=== PATIENT | female | born 1950 | race Caucasian/White ===

== ENCOUNTER 2016-11-15 05:32 | Observation (INO) | payer OTHER ==
[~2016-11-15] VITALS: Ht 160 cm; Wt 61.8 kg
[~2016-11-15 05:32] MED LIST: ASPI-110 PO; LISI-519 PO; ROSU10 PO
[2016-11-15] MEDS ORDERED: METOPROLOL TARTRATE 25 MG TAB PO PRN (06:00)
[2016-11-15] MEDS ORDERED: CHLORHEXIDINE GLUCONATE 2 % 1 PACK (2 CLOTHS) TOPICAL PRN (06:00)
[2016-11-15] MEDS ORDERED: LACTATED RINGER'S 1000 ML IV PRN (06:00)
[2016-11-15] MEDS ORDERED: SODIUM CHLORID 0.9% 500 ML IV PRN (06:00)
[2016-11-15] MEDS ORDERED: INSULIN HUMAN REGULAR 1,000 UNITS/10 ML VIAL SQ PRN (06:00)
[2016-11-15] MEDS ORDERED: HEPARIN SODIUM - SQ 10,000 UNITS/ML VIAL SQ SCH (06:00)
[2016-11-15] MEDS ORDERED: POVIDONE IODINE 5% (ANTISEPSIS KIT) 4 APPLICATIONS EACH NARE PRN (06:00)
[2016-11-15] MEDS ORDERED: ceFAZolin 1,000 MG/NS 100 ML IV SCH ×2 (06:00)
[2016-11-15 06:11] VITALS: BP 144/57; PULSE 72; RESP 20; TEMP 98; O2SAT 98
[2016-11-15] MEDS ORDERED: ACETAMINOPHEN 1000 MG/100 ML VIAL IV ONE (07:08)
[2016-11-15] MEDS ORDERED: HYDROmorphone HCL PF 2 MG/ML VIAL ONE (07:08)
[2016-11-15] MEDS ORDERED: SUGAMMADEX SODIUM 200 MG/2 ML VIAL IV PUSH ONE ×2 (07:09)
[2016-11-15] MEDS ORDERED: FAMOTIDINE 20 MG/2 ML VIAL ONE (07:09)
[2016-11-15] MEDS ORDERED: LIDOCAINE 1%/EPINEPHrine 1:100,000 SOLN 30 ML VIAL INFIL ONE (08:11)
[2016-11-15] MEDS ORDERED: fentaNYL CITRATE 250 MCG/5 ML AMP ONE (08:28)
[2016-11-15] MEDS ORDERED: MIDAZOLAM HCL 2 MG/2 ML VIAL ONE (08:28)
[2016-11-15] MEDS ORDERED: oxyCODONE/ACETAMINOPHEN 5 MG/325 MG TAB PO PRN ×2 (11:00)
[2016-11-15] MEDS ORDERED: LORazepam 0.5 MG TAB PO PRN (11:00)
[2016-11-15] MEDS ORDERED: diphenhydrAMINE HCL 25 MG CAP PO PRN (11:00)
[2016-11-15] MEDS ORDERED: SODIUM CHLORIDE 0.9% FLUSH 10 ML FLUSH IV FLUSH PRN (11:00)
[2016-11-15] MEDS ORDERED: ONDANSETRON HCL 4 MG/2 ML VIAL IVP PRN (11:00)
[2016-11-15] MEDS ORDERED: DO NOT ADM ANY ANTICOAGULANT DRUGS PRN (11:06)
[2016-11-15] MEDS: D5-1/2 NS + KCL 20 MEQ INJ 1,000 ML IV SCH ×2 (11:37→22:08)
[2016-11-15] MEDS: KETOROLAC TROMETHAMINE 30 MG/ML (IVP) VIAL IVP SCH ×3 (11:40→23:55)
[2016-11-15] MEDS ORDERED: ONDANSETRON HCL 4 MG/2 ML VIAL IV PUSH ONE (12:00)
[2016-11-15] MEDS ORDERED: PROPOFOL 200 MG/20 ML AMP IV ONE (12:00)
[2016-11-15] MEDS ORDERED: ePHEDrine/NS 25 MG/5 ML SYR IV ONE (12:00)
[2016-11-15] MEDS ORDERED: LACTATED RINGER'S 1000 ML INJ 1,000 ML IV ONE (12:00)
[2016-11-15 16:00] VITALS: BP 161/65; PULSE 72; RESP 20; TEMP 96.5; O2SAT 99
[2016-11-15] MEDS ORDERED: TETRACAINE 0.5% OPTH SOLN 4 ML BTL LEFT EYE ONE (17:00)
[2016-11-15 20:00] VITALS: BP 130/58; PULSE 88; RESP 20; TEMP 96.3; O2SAT 100
[2016-11-15] MEDS: SODIUM CHLORIDE 0.9% FLUSH 10 ML FLUSH IV FLUSH SCH (20:37)
[2016-11-16] VITALS: BP 134/68; PULSE 86; RESP 20; TEMP 97.5; O2SAT 96
[2016-11-16 03:46] VITALS: O2SAT 95
[2016-11-16 04:00] VITALS: BP 122/55; PULSE 87; RESP 20; TEMP 97.9; O2SAT 97
[2016-11-16] MEDS: KETOROLAC TROMETHAMINE 30 MG/ML (IVP) VIAL IVP SCH (06:14)
[2016-11-16 06:25] LABS: AUTOMATED NEUTROPHIL # 7.6 TH/MM3 (1.8-7.7); BASOPHIL % 0.3 % (0.0-2.0); EOSINOPHIL % 0.1 % (0.0-4.0); HEMO FLAGS DIFF FINAL; LYMPH % 8.8 % (9.0-44.0); LYMPHOCYTE # 0.8 TH/MM3 (1.0-4.8); MEAN CELL VOLUME 92.8 FL (80.0-100.0); MEAN CORPUSCULAR HGB CONC 34.5 % (32.0-36.0); MONO % 8.1 % (0.0-8.0); NEUT % 82.7 % (16.0-70.0); PLATELET COUNT 178 TH/MM3 (150-450); RED BLOOD COUNT 3.34 MIL/MM3 (4.00-5.30); RED CELL DISTRIBUTION WIDTH 13.2 % (11.6-17.2); WHITE BLOOD COUNT 9.1 TH/MM3 (4.0-11.0)
[2016-11-16 06:48] LABS: BICARBONATE 25.1 MEQ/L (21.0-32.0); POTASSIUM 4.3 MEQ/L (3.5-5.1)
[2016-11-16] MEDS: D5-1/2 NS + KCL 20 MEQ INJ 1,000 ML IV SCH (06:59)
--- NOTE | 2016-11-16 07:25 | PD.PN.STU ---
Subjective Remarks This is post P/O day 1 for Ms. Olmos, status post a robotic assisted laparoscopic hysterectomy, BSO, with resection of a 10 cm ovarian mass. 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 Overnight she had no complaints. She is a little sore from the surgery, she has voided, she has not had any food, she has had no bowel movements or flatulence. Objective Vitals Vital Signs Date Time Temp Pulse Resp B/P Pulse Ox O2 Delivery O2 Flow Rate FiO2 11/16/16 04:00 97.9 87 20 122/55 97 11/16/16 03:46 95 21 11/16/16 01:23 19 11/16/16 00:00 97.5 86 20 134/68 96 11/15/16 20:00 96.3 88 20 130/58 100 11/15/16 16:00 96.5 72 20 161/65 99 Automatic Cuff 11/15/16 15:30 97.9 82 13 113/55 99 Nasal Cannula 2 11/15/16 15:00 79 14 109/55 99 Nasal Cannula 2 11/15/16 14:15 80 13 119/56 100 Nasal Cannula 2 11/15/16 14:00 80 15 103/55 99 Nasal Cannula 2 11/15/16 13:45 81 20 121/59 100 Nasal Cannula 2 11/15/16 13:45 81 20 101/54 100 11/15/16 13:30 74 12 87/50 97 Nasal Cannula 2 11/15/16 13:15 74 12 94/49 94 Nasal Cannula 2 11/15/16 13:00 78 12 100/51 97 Nasal Cannula 2 11/15/16 12:45 85 11 109/51 95 Nasal Cannula 2 11/15/16 12:30 73 11 80/41 97 Nasal Cannula 2 11/15/16 12:15 78 11 86/48 98 Nasal Cannula 2 116/35 11/15/16 12:00 75 11 96/49 96 Nasal Cannula 2 117/36 11/15/16 11:45 77 11 105/55 97 Nasal Cannula 3 114/41 11/15/16 11:30 81 11 85/47 96 Nasal Cannula 3 86/35 11/15/16 11:15 104 11 120/56 96 Nasal Cannula 3 11/15/16 11:09 97.6 95 14 115/53 94 Nasal Cannula 3 I/O 11/15/16 11/15/16 11/15/16 11/16/16 11/16/16 11/16/16 07:00 15:00 23:00 07:00 15:00 23:00 Intake Total 1800 ml 2500 ml 755 ml Output Total 2300 ml 400 ml 190 ml Balance -500 ml 2100 ml 565 ml Intake Oral 75 ml IV Total 2425 ml 755 ml Other 1800 ml Output Urine Total 200 ml 400 ml 190 ml Estimated Blood Loss 100 ml Other 2000 ml # Sanitary Pads 0 Pads 0 Pads Alert and oriented x3 Clear and normal S1 and S2 sounds with no gallops or murmurs, RRR, no edema Abdomen is is sore and bowel sounds were not heard. The 4 incision sites were clean with no drainage Result Diagram: 11/16/16 0545 11/16/16 0545 Medications and IVs Administered Medications Medications (Trade) Dose Ordered Sig/Hood Route PRN Reason Start Time Stop Time Status Last Admin Dose Admin Lactated Ringer's 1,000 ml @ 30 mls/hr Q24H PRN IV SEE LABEL COMMENTS 11/15/16 06:00 11/18/16 05:59 11/15/16 06:15 Potassium Chloride/Dextrose/ Sod Cl (D5-1/2 NS + KCl 20 Meq Inj) 1,000 ml @ 100 mls/hr Q10H IV 11/15/16 10:59 11/15/16 22:08 Sodium Chloride (NS Flush) 2 ml BID IV FLUSH 11/15/16 21:00 11/15/16 20:37 Ondansetron HCl (Zofran Inj) 4 mg Q6H PRN IVP NAUSEA OR VOMITING 11/15/16 11:00 11/15/16 16:13 A/P Assessment and Plan This is PO day 1 for a 66 year old female status post a robotic assisted laparoscopic hysterectomy and BSO with resection o f a 10 cm right ovarian mass. My impression is that she is doing as well as expected, she has not tolerated food but is starting to feel hungry, she has voided and her Griffin has been removed. She is hemodynamically stable and her pain is being controlled on Toradol. She meets criteria to go home. Discharge Planning She has been instructed to call the office and make a follow up in 2 weeks. She should resume her normal medications. She can resume diet as tolerated and if she has any questions or complaints from now until her follow up she should call the office. Rj Perez M3 Nov 16, 2016 07:24
[2016-11-16] MEDS ORDERED: OXYC1TAB63 PO (07:30)
[2016-11-16 07:44] VITALS: O2SAT 98
[2016-11-16 08:00] VITALS: BP 166/66; PULSE 76; RESP 17; TEMP 97.1; O2SAT 100
[2016-11-16] MEDS: SODIUM CHLORIDE 0.9% FLUSH 10 ML FLUSH IV FLUSH SCH (08:15)
[2016-11-16] MEDS ORDERED: ATORVASTATIN 20 MG TAB PO SCH (09:00)
[2016-11-16] MEDS ORDERED: LISINOPRIL 5 MG TAB PO SCH (09:00)
--- NOTE | 2016-11-19 09:56 | MP ---
cc: SOHAM LAWS KELLY L. MD ZAWMYINT, DR DATE OF PROCEDURE 11/15/2016 PREOPERATIVE DIAGNOSES 1. Pelvic mass. 2. Thickened endometrial stripe with postmenopausal bleeding. POSTOPERATIVE DIAGNOSES 1. Right ovarian mucinous cystadenoma. 2. Endometrial polyps. PROCEDURE Robotic-assisted laparoscopic hysterectomy, bilateral salpingo-oophorectomy. SURGEON Shanna Mendoza MD MILITARY PROFESSIONAL [employer] administrative assistant. ANESTHESIA General endotracheal anesthesia. ESTIMATED BLOOD LOSS 100 cc. IV FLUIDS 1400 cc. URINE OUTPUT 200 cc HISTORY This is a 66-year-old female found on exam and imaging to have a smooth-walled, predominantly cystic mass in the pelvis thought be of ovarian origin; it was approximately 18-20 cm, extended to the level of the umbilicus. No other changes to suggest metastatic disease and normal CA-125. She has been counseled regarding these findings and options. She is very much in favor of minimally invasive surgery if possible. She is seen in the preop holding area. The pros and cons and potential surgical approach are discussed and reviewed. She expressed good understanding and wanted to move forward. FINDINGS The uterine cavity sounded to approximately 7 cm. The left tube and ovary appeared normal. The right ovary was replaced by a large, smooth-walled cystic mass. There were no peritoneal adhesions, no peritoneal implants, no adenopathy. Frozen section on the right ovary showed it to be a benign mucinous cystadenoma preliminary pathology of the uterus showed there to be benign endometrial polyps. PROCEDURE The patient is taken to the operating room, placed in dorsal lithotomy position. After general endotracheal anesthesia was administered, time-out was undertaken. The patient was identified by sight recognition and hospital ID bracelet and the proposed procedure was reviewed and confirmed. She was carefully positioned in padded Gumaro stirrups. Her arms were padded and secured to her sides. She was further secured to the operating table with eggcrate padding tape in across-chest [id number] fashion. All sites were noted to be properly aligned with no malalignments or pressure points. She was prepped in sterile fashion, draped below the waist, placed in high lithotomy position, cervix grasped, uterine cavity sounded, the cervix dilated. A large V-Care manipulator was inserted and secured the usual fashion, Griffin catheter placed in the bladder. She was returned to low lithotomy position. Change of sterile gloves was undertaken and we completed draping in anticipation of laparoscopy. After confirming that an orogastric tube was in the stomach on suction with manual elevation of the abdominal wall and direct laparoscopic visualization, a 5-mm cannula was placed in the left upper quadrant. Carbon dioxide gas was insufflated and an atraumatic entry was confirmed. A 12-mm cannula was placed in midline above the umbilicus, an 8-mm cannula was placed in the right upper quadrant and left lateral quadrant. The original 5-mm was exchanged for a 8-mm cannula. She was placed in steep Trendelenburg position. The anatomy was surveyed with findings as described above. Visibility was limited due to the size of the mass and given its benign appearance the mass was aspirated with needle aspiration and 2 liters of clear fluid were removed, collapsing down the cystic capsule. Three Ray-Jad sponges were placed around the root of the small bowel mesentery, the robotic system brought into the operative field, attached in the usual fashion. Monopolar scissors, fenestrated bipolar forceps and ProGrasp manipulators were placed in arms #1, 2 and 3 respectively and I took my place at the surgeon's console. The right round ligament was isolated, cauterized and transected. The anterior and posterior leaves of the broad ligament were opened. The right ureter was identified. The right infundibulopelvic ligament was isolated, the intervening peritoneum was opened. The infundibulopelvic ligament was isolated to the level of the pelvic brim where it was cauterized and transected. Posterior peritoneum was opened along the right side of the uterus and cervix and the right vesicouterine peritoneum dissected off the lower uterine segment and cervix and the right uterine vessels were skeletonized. The right uterine vessels were then cauterized and transected as were the cardinal, paracervical and uterosacral ligaments. Attention was directed toward the left side. Some physiologic adhesions of the colon were taken down to facilitate retroperitoneal dissection. The left round ligament was cauterized and transected. The anterior and posterior leafs of the broad ligament were opened. The left ureter was identified. The left infundibulopelvic ligament was isolated. The intervening peritoneum was opened. The infundibulopelvic ligament was isolated to the level of the pelvic brim where it was cauterized and transected. The posterior peritoneum was opened along the left side of the uterus and cervix, the left vesicouterine peritoneum dissected off the lower uterine segment and cervix. The left uterine vessels were skeletonized, cauterized and transected as were the cardinal, paracervical and uterosacral ligaments. Colpotomy was performed the cervix from the upper vagina. The specimen was withdrawn transvaginally which included uterus, cervix, tubes and ovaries and a pneumooccluder balloon was placed in the vagina to maintain pneumoperitoneum. Given the benign appearance of the mass and the findings, the three Ray-Jad sponges were each removed transvaginally using ring forceps, instruments #1 and 3 exchanged for needle drivers as 0 Vicryl suture was introduced and the vaginal cuff was closed starting at the left corner, full-thickness closure including the posterior peritoneum and edge of the uterosacral ligament and tied via instrument tie. The closure was held on countertraction as a continuous full-thickness closure was carried across the vaginal cuff to the contralateral corner where it was similarly fixed, tied and secured. The needle was cut and removed. The integrity of the bladder was inspected, confirmed to be intact. It was a good margin between the vaginal cuff suture line and edge of the bladder and good peristalsis of ureters bilaterally. There were no remaining foreign objects in the peritoneal cavity. Pathology came back with benign findings as expected and it was felt that all reasonable surgical objectives had been completed. Robotic instruments were removed. The robotic system was disengaged from the operative field. I reentered the bedside under sterile condition. The 12-mm fascial defect was closed with interrupted 0 Vicryl sutures using a needle apparatus. They were tied securely rendering the fascia completely airtight and hemostatic. The remaining cannulas were withdrawn, carbon dioxide gas was removed. 3-0 Vicryl subcutaneous, 3-0 Vicryl subcuticular and Steri-Strips were used to close these incisions. She is placed again in dorsal lithotomy position. Inspection confirmed the vaginal cuff was well-supported. There was no bleeding, no vaginal lacerations, no remaining foreign objects in the vagina. Final counts were correct. She was returned to dorsal supine position and was pending reversal of anesthesia when I left the operating room to precede her to the Post-Anesthesia Care Unit. Shanna Mendoza MD KM/SSB /6:09 AM /9:41 AM
--- NOTE | 2016-11-20 18:29 | MD ---
cc: SOHAM LAWS KELLY L. MD ZAWMYINT, DR ADMISSION DATE: 11/15/2016 DISCHARGE DATE: 11/16/2016 PROCEDURE 11/15/2016 - robotic-assisted laparoscopic hysterectomy, bilateral salpingo-oophorectomy (with resection of 20 cm right ovarian mucinous cystadenoma) and endometrial polyps HOSPITAL COURSE She did well during the first 24 hours after surgery. She remained afebrile, tolerating oral intake. Griffin catheter removed, voiding without difficulty. Labs - H&H 10.7 31.0. Electrolytes essentially normal - potassium 4.3, creatinine 0.71. In and outs - [id number]/2890 PHYSICAL EXAMINATION VITAL SIGNS: Afebrile, pulse 72-88, respirations 18-20, blood pressure 122-161/55-65, O2 saturations greater than or equal to 97% while awake. GENERAL: Alert and oriented x3. LUNGS: Clear. CARDIOVASCULAR: Regular rate and rhythm. ABDOMEN: Soft. Incision is clean and dry. GLASS SMOOTHER: No bleeding. EXTREMITIES: Nontender. ASSESSMENT Postop day #1 doing well. Preliminary pathology findings discussed, activities restrictions reviewed. Questions were answered. She expressed good understanding. PLAN Anticipate she will be discharged to home today. She is to contact our office to schedule follow up in approximately 2 weeks. She is to resume prior medications, prescription for Percocet. MD ROOPA Acevedo/ /7:34 AM /6:28 PM
== END 2016-11-16 11:03 | disposition home or self-care (01) ==
LOC: HSDC 05:32 → HSDI 11:01 → HOCA 16:00
PROVIDERS: ADMIT Obstetrics & Gynecology Gynecologic Oncology; ATTEND Obstetrics & Gynecology Gynecologic Oncology
DX: D25.9 Leiomyoma of uterus, unspecified (principal); D27.0 Benign neoplasm of right ovary; N80.0 Endometriosis of uterus; N83.8 Other noninflammatory disorders of ovary, fallopian tube and broad ligament; N88.8 Other specified noninflammatory disorders of cervix uteri; Z87.891 Personal history of nicotine dependence
CPT/HCPCS: 58571; 80048; 85025; 86850; 86900; 86901; 88112; 88305; 88307; 88331; 94150; 96374; 96376; G0378; J0131; J0690; J1170; J1644; J1885; J2250; J2405; J3010; J3480; J7120